=== PATIENT | male | born 1960 | race Caucasian/White ===

== ENCOUNTER 2023-05-07 13:11 | Emergency (ER) | payer OTHER, MEDICAID ==
[~2023-05-07] VITALS: Ht 177.8 cm; Wt 70.7 kg
[2023-05-07 14:22] VITALS: BP 140/74; PULSE 68; RESP 20; TEMP 98.1; O2SAT 98
== END 2023-05-07 18:09 | disposition home or self-care (01) ==
LOC: ER 13:11
DX: S16.1XXA Strain of muscle, fascia and tendon at neck level, initial encounter (principal); X58.XXXA Exposure to other specified factors, initial encounter; Y93.89 Activity, other specified; Y92.89 Other specified places as the place of occurrence of the external cause; Y99.8 Other external cause status
CPT/HCPCS: 72125